=== PATIENT | male | born 1935 | race Caucasian/White ===

== ENCOUNTER 2019-03-05 10:00 | Inpatient (IN) ==
--- NOTE | 2019-02-26 17:39 | EKG Report ---
Test Performed on : 02/26/2019 5:20:09 PM Test Reason : PAT Blood Pressure : / mmHG Vent. Rate : 089 BPM Atrial Rate : 096 BPM P-R Int : 000 ms QRS Dur : 094 ms QT Int : 342 ms P-R-T Axes : 000 087 060 degrees QTc Int : 416 ms Atrial fibrillation. with a competing junctional pacemaker. Cannot rule out Anterior infarct , age undetermined Abnormal ECG When compared with ECG of 11-NOV-2013 09:02, No significant change was found Confirmed by Rupert CHEN, Shola Nielsen ([id number]) on 02/27/2019 11:39:36 AM
[2019-02-26 17:45] LABS: BASO# 0.05 X1000 (0.0-0.2); BASO% 0.7 % (0.0-0.8); EOS# 0.29 X1000 (0.0-0.7); EOS% 3.8 % (0.0-10.0); HEMATOCRIT 43.7 % (42.0-52.0); HEMOGLOBIN 14.6 g/dL (14.0-18.0); LYMPH# 1.41 X1000 (1.2-3.4); LYMPH% 18.5 % (20.5-51.1); MCH 34.2 PG (27-31); MCHC 33.4 g/dL (33-37); MCV 102.3 FL (81-99); MONO# 0.61 X1000 (0.11-0.59); MPV 9.6 FL (7.4-10.4); NEUT# 5.26 X1000 (1.4-6.5); PLT 237 X1000 (130-400); RBC 4.27 XMIL (4.7-6.1); RDW 11.9 % (11.5-14.5); WBC 7.62 X1000 (4.8-10.8)
[2019-02-26 17:52] LABS: INR 1.01; PROTIME 14.1 Seconds (11.0-16.0)
[2019-02-26 17:53] LABS: PTT 30.4 Seconds (22.3-41.8)
[2019-02-26 18:22] LABS: CALCIUM 9.3 mg/dL (8.8-10.2); CREATININE 1.2 mg/dL (0.7-1.2); POTASSIUM 4.4 mmol/L (3.5-5.1)
[2019-02-26 19:35] LABS: URINE SOURCE CLEAN CATCH
[2019-02-26 19:48] LABS: BILIRUBIN URINE NEGATIVE (NEGATIVE); BLOOD URINE NEGATIVE (NEGATIVE); COLOR YELLOW; GLUCOSE URINE NEGATIVE (NEGATIVE); KETONE URINE NEGATIVE (NEGATIVE); LEUKOCYTES URINE NEGATIVE (NEGATIVE); NITRITE URINE NEGATIVE (NEGATIVE); PROTEIN URINE TRACE mg/dL (NEGATIVE); SP GRAVITY URINE 1.025; TURBIDITY URINE CLEAR (CLEAR); UROBILINOGEN URINE NORMAL (NORMAL)
[2019-02-26 19:49] LABS: UR EPITHELIAL CELLS <10 /HPF (<10); URINE BACTERIA NEGATIVE /HPF; URINE RBC <10 /HPF (<10); URINE WBC <10 /HPF (<10)
[2019-03-19] MEDS ORDERED: DIPRIVAN 1% ONE (09:17)
[2019-03-19] MEDS ORDERED: XYLOCAINE-MPF 2% ONE (09:17)
[2019-03-19] MEDS ORDERED: QUELICIN (DOSE) ONE (09:19)
[2019-03-19] MEDS ORDERED: NEO-SYNEPHRINE ONE (09:23)
[2019-03-19] MEDS ORDERED: ROBINUL ONE ×2 (09:27→13:17)
[2019-03-19] MEDS ORDERED: REGLAN ONE (10:12)
[2019-03-19] MEDS ORDERED: LYRICA ONE (10:12)
[2019-03-19] MEDS ORDERED: COLACE ONE (10:12)
[2019-03-19] MEDS ORDERED: PEPCID ONE (10:12)
[2019-03-19] MEDS ORDERED: KEFZOL 1 GM/D5W 1 GM/50 ML IVPB ONE (10:13)
[2019-03-19] MEDS ORDERED: LR 1,000 ML ONE (10:13)
[2019-03-19] MEDS ORDERED: CELEBREX ONE (10:13)
[2019-03-19] MEDS ORDERED: DURAMORPH ONE (11:38)
[2019-03-19] MEDS ORDERED: MARCAINE 0.25% PF/EPI 1:200,000 ONE (11:38)
[2019-03-19] MEDS ORDERED: SODIUM CHLORIDE 0.9% ONE (11:38)
[2019-03-19] MEDS ORDERED: NEOSPORIN G.U. IRRIGANT ONE (11:38)
[2019-03-19] MEDS ORDERED: CYKLOKAPRON 1,000 MG/NS 1,000 MG/100 ML IVPB ONE (11:38)
[2019-03-19] MEDS ORDERED: TORADOL ONE (11:38)
[2019-03-19] MEDS ORDERED: EXPAREL 1.3% ONE (11:38)
[2019-03-19] MEDS ORDERED: OFIRMEV 1000 MG/ISOTONIC SOLN 1,000 MG/100 ML BOTTLE ONE (12:26)
[2019-03-19] MEDS ORDERED: DECADRON ONE (12:29)
[2019-03-19] MEDS ORDERED: ZOFRAN ONE (12:54)
[2019-03-19] MEDS ORDERED: MORPHINE ONE (13:08)
[2019-03-19 13:13] LABS: URINE SOURCE CATH
[2019-03-19 13:18] LABS: BILIRUBIN URINE NEGATIVE (NEGATIVE); BLOOD URINE LARGE (NEGATIVE); COLOR STRAW; GLUCOSE URINE NEGATIVE (NEGATIVE); KETONE URINE NEGATIVE (NEGATIVE); LEUKOCYTES URINE NEGATIVE (NEGATIVE); NITRITE URINE NEGATIVE (NEGATIVE); PROTEIN URINE NEGATIVE (NEGATIVE); SP GRAVITY URINE 1.004; TURBIDITY URINE CLEAR (CLEAR); UROBILINOGEN URINE NORMAL (NORMAL)
[2019-03-19 13:19] LABS: UR EPITHELIAL CELLS <10 /HPF (<10); URINE BACTERIA NEGATIVE /HPF; URINE RBC TNTC /HPF (<10); URINE WBC <10 /HPF (<10)
[2019-03-19] MEDS: DILAUDID ONE ×2 (14:02→14:05)
[2019-03-19] MEDS ORDERED: NS 0 ML ONE (14:17)
[2019-03-19] MEDS ORDERED: NS 1,000 ML ONE (14:27)
[2019-03-19] MEDS ORDERED: OXY IR ONE (14:40)
--- NOTE | 2019-03-19 14:41 | Diag Imaging Result Doc PS360 ---
SHOULDER-LEFT - 03/19/2019 INDICATION: Left total shoulder TECHNIQUE: One view COMPARISON: None FINDINGS: There is been placement of a left total shoulder arthroplasty. Alignment is anatomic. No hardware fracture or loosening. IMPRESSION: No complication. Electronically signed by Wilmar Nathan 03/19/2019 2:39 PM
[2019-03-19] MEDS ORDERED: OXY IR PO PRN (14:45)
[2019-03-19] MEDS ORDERED: ZOFRAN PO PRN (14:45)
[2019-03-19] MEDS ORDERED: MORPHINE IV PRN ×3 (14:45)
[2019-03-19] MEDS: NS 1,000 ML IV SCH (15:19)
[2019-03-19] MEDS: OXY IR PO PRN (20:03)
[2019-03-19] MEDS: PERIDEX MT SCH (20:03)
[2019-03-19] MEDS: KEFZOL 1 GM/D5W 1 GM/50 ML IVPB IV SCH (20:03)
--- NOTE | 2019-03-19 21:57 | OPERATIVE NOTE ---
PROCEDURE DATE: 03/19/2019 PREOPERATIVE DIAGNOSIS: Left glenohumeral arthritis. POSTOPERATIVE DIAGNOSIS: Left glenohumeral arthritis. PROCEDURE: Left reverse shoulder arthroplasty with DePuy Delta XTEND size 14 press-fit stem, a 42 + 3 humeral cup and a 42 eccentric hemisphere. SURGEON: Tyshawn Espinosa MD RECORDER HELPER GRAVITY PROSPECTING: SHAHBAZ Velazquez SECOND RECORDER HELPER GRAVITY PROSPECTING: Greg Villarreal. ANESTHESIA: General. IV FLUIDS: 1300 mg of lactated Ringers. ESTIMATED BLOOD LOSS: 100 mL. COMPLICATIONS: None. INDICATION: The patient is a pleasant 83-year-old male with a chronic history of worsening pain and discomfort of the left shoulder. X-rays showed significant degenerative glenohumeral arthritis. A recommendation to proceed with left reverse shoulder arthroplasty was offered. Risks and benefits of surgery were explained, including the risks of anesthesia, , bleeding, infection, failure to relieve pain, postoperative stiffness, nerve injury, blood clots, and other imponderables. All questions were answered. The patient and family wished to proceed with surgery. DETAILS OF OPERATION: The patient was taken to the operating room and placed supine on the operating table. Once adequate anesthesia was obtained, the patient was placed in semi-[place] beach-chair position. The left shoulder was subsequently prepped and draped in usual sterile fashion. A standard deltopectoral incision was made with a skin knife. Hemostasis was obtained using electrocautery. The deltopectoral interval was then developed. The clavipectoral fascia was elevated as well as the conjoined tendon. King retractors were placed at this level. Attention turned to the subscapularis tendon and a stay suture was placed. Approximately 1 cm medial to the insertion, the subscapular tendon was released. The superior aspect of the rotator cuff was released as well. The head was then dislocated anteriorly. It had significant degenerative changes. A starting reamer was then passed in the intramedullary canal up to a size 12 mm. Intramedullary guide with a proximal humeral head cutting block was pinned in position. The humeral head was then resected. The inferior osteophyte was removed with a osteotome and rongeur. The patient did have large loose body which was removed from the inferior capsular pouch as well as osteophytes off the glenoid. After this had been performed, a protective disk was placed in the proximal humerus. Attention was then turned to the glenoid. Circumferential dissection was performed with a deep knife. The patient did have significant wear of the glenoid and eccentric posterior wearing. A guide was placed in position. Guide pin was then placed. Reaming was then conducted somewhat eccentric due to the posterior wear. The central hole was dilated. The guide pin was then removed. The wound was copiously irrigated with antibiotic pulsatile lavage. A standard Metaglene was then impacted in position. Two locking screws were placed and 2 nonlocking screws. This had good purchase. A 42 eccentric Glenosphere was then placed with eccentricity placed inferiorly. Attention then turned to the proximal humerus where an intramedullary guide was placed in position. The proximal humerus was reamed. The patient had some loosening of the size 12 guide therefore, it was reamed up to 14. The intramedullary canal was copiously irrigated with antibiotic pulsatile lavage. A size 14 delta extend press-fit stem was then impacted in approximately 15 degrees of retroversion and it had good purchase. The 42 ,+3 humeral cup was deemed to be the correct size. The trial cup was removed. The wound was copiously irrigated. A 42, +3 humeral cup was impacted on the stem. The shoulder reduced, carried through range of motion. It had good range of motion and good stability. The wound was copiously irrigated. A #2 FiberWire was used to repair the subscapularis tendon. The Exparel was placed in deep soft tissue, as well as the subcutaneous tissue. The wound was copiously irrigated once again. A 2-0 Vicryl was then used to repair the subcutaneous tissue, followed by a running 2-0 Prolene. Benzoin and Steri-Strips were applied. Adaptic, 4x4s, ABD pad, and tape applied to the left shoulder followed shoulder immobilizer. All counts were correct. The patient tolerated the procedure well. He was transferred to the recovery room in stable condition. cc: Tyshawn Espinosa MD
[2019-03-20] MEDS: KEFZOL 1 GM/D5W 1 GM/50 ML IVPB IV SCH (03:37)
[2019-03-20] MEDS ORDERED: ATIVAN PO PRN (04:15)
[2019-03-20] MEDS: OXY IR PO PRN (04:47)
[2019-03-20] MEDS: NS 1,000 ML IV SCH (05:16)
[2019-03-20 05:59] LABS: HEMATOCRIT 38.1 % (42.0-52.0); HEMOGLOBIN 12.5 g/dL (14.0-18.0)
--- NOTE | 2019-03-20 06:13 | ORTHOPAEDICS PROGRESS NOTE ---
DATE: 03/20/2019 SUBJECTIVE: The patient is an 83-year-old male who is 1 day status post left reversal total shoulder arthroplasty. The patient is currently resting comfortably. OBJECTIVE: The patient's left upper extremity, his dressing is intact. He is neurovascularly distally. Able to flex all his fingers. Good capillary refill distally. LABS: Pending. IMPRESSION: Postoperative day #1 status post left reverse shoulder arthroplasty. PLAN: At this point, we will plan on discharging home after mobilization with physical therapy. We will arrange for home physical therapy. cc: Tyshawn Espinosa MD
[2019-03-20 06:27] LABS: AGAP 8; BUN 24 mg/dL (8-22); CALCIUM 8.5 mg/dL (8.8-10.2); CHLORIDE 105 mmol/L (98-107); COSMO 281; CREATININE 1.1 mg/dL (0.7-1.2); ESTIMATED GFR > 60; GLUCOSE 150 mg/dL (70-104); POTASSIUM 4.8 mmol/L (3.5-5.1); SODIUM 137 mmol/L (136-145); TCO2 24 mmol/L (25-35)
[2019-03-20] MEDS: PERIDEX MT SCH (08:08)
[2019-03-20] MEDS ORDERED: PROSCAR PO SCH (09:00)
[2019-03-20] MEDS ORDERED: COSOPT OPHTH SOLN BOTH EYES SCH (09:00)
[2019-03-20] MEDS ORDERED: FLOMAX PO SCH (09:00)
[2019-03-20] MEDS ORDERED: ELIQUIS PO SCH (09:00)
[2019-03-20 13:46] VITALS: BP 108/98
== END 2019-03-20 11:40 | disposition home or self-care (01) | DRG 483 ==
LOC: SURHOLD 03-19 03:28 → 4N 03-19 12:50
PROVIDERS: ADMIT Orthopaedic Surgery Adult Reconstructive Orthopaedic Surgery; ATTEND Orthopaedic Surgery Adult Reconstructive Orthopaedic Surgery
CPT/HCPCS: 73030; 80048; 81001; 85014; 85018; 85025; 85610; 85730; 86850; 86900; 86901; 88305; 88311; 93005; 93010; 94761; 94799; 97110; 97162; 97530; A9270; C9290; J0131; J0330; J0690; J1100; J1170; J1885; J2270; J2274; J2275; J2370; J2405; J7030; J7120; Q9974; S0138